=== PATIENT | female | born 1970 | race Caucasian/White ===

== ENCOUNTER 2018-10-04 14:10 | Outpatient (CLI) | payer BC ==
--- NOTE | 2018-10-04 14:32 | RAD ---
LEFT HAND THREE VIEWS: History: Pain in left hand. FINDINGS: Carpals appear normally aligned. The metacarpals and phalanges appear intact. MCP and IP joints unrem arkable. IMPRESSION: Unremarkable exam. POS: BISMARK
== END 2018-10-04 14:11 | disposition home or self-care (01) ==
LOC: BICRAD 14:10
PROVIDERS: ATTEND Family Medicine
DX: M79.642 Pain in left hand (principal)